=== PATIENT | female | born 1940 | race Caucasian/White ===

== ENCOUNTER 2018-11-02 15:04 | Emergency (ER) | payer OTHER ==
[~2018-11-02] VITALS: Ht 162.6 cm; Wt 51.7 kg
[~2018-11-02 15:04] MED LIST: Aspirin 81 Mg Tablet Chew PO; CARVEDILOL6.25 MG PO; DESYREL50 MG PO; PAXIL20 MG PO; PRAVACHOL40 MG PO; PRINIVIL10 MG PO
[2018-11-02] MEDS ORDERED: NORVASC5 MG PO (15:24)
[2018-11-02] MEDS ORDERED: ARICEPT10 M1 PO (15:24)
[2018-11-02] MEDS ORDERED: BENTYL 10 MG CA10 M1 PO (15:24)
[2018-11-02] MEDS ORDERED: BUSPIRONE HCL10 MG PO (15:24)
[2018-11-02] MEDS ORDERED: VITAMIN B-121000 MC3 PO (15:25)
[2018-11-02] MEDS ORDERED: XANAX 0.25 MG0.25 MG PO (15:25)
[2018-11-02] MEDS ORDERED: SEROQUEL 25 MG25 M1 PO (15:25)
[2018-11-02] MEDS ORDERED: LEXAPRO 10 MG T10 M2 PO (15:26)
[2018-11-02] MEDS ORDERED: IBUPROFEN 400400 M2 PO (15:26)
[2018-11-02 16:00] LABS: URINE BILIRUBIN NEGATIVE (Negative); URINE BLOOD 1+ (Negative); URINE CLARITY CLEAR; URINE COLOR YELLOW; URINE GLUCOSE-RANDOM NEGATIVE (Negative); URINE KETONES NEGATIVE (Negative); URINE LEUKOCYTES-REFLEX TRACE (Negative); URINE NITRITE-REFLEX NEGATIVE (Negative); URINE PROTEIN NEGATIVE (Negative); URINE UROBILINOGEN 0.2 E.U./dl (0.2-1.0)
[2018-11-02 16:05] LABS: ABSOLUTE BASOPHILS 0.1 thou/uL (0.0-0.2); ABSOLUTE EOSINOPHILS 0.1 thou/uL (0.0-0.7); ABSOLUTE LYMPHOCYTES 2.2 thou/uL (0.8-5.3); ABSOLUTE MONOCYTES 0.6 thou/uL (0.0-1.2); ABSOLUTE NEUTROPHILS 6.4 thou/uL (1.6-8.1); BASOPHILS 0.8 %; EOSINOPHILS 0.6 %; HEMATOCRIT 42.8 % (37.0-47.0); HEMOGLOBIN 14.2 gm/dL (12.0-15.0); LYMPHOCYTES 23.9 %; MCH 30.2 pg (26.0-34.0); MCHC 33.3 g/dL (28.0-37.0); MCV 90.7 fL (80.0-100.0); MONOCYTES 5.9 %; MPV 9.2 fl. (7.2-11.1); NUCLEATED RBCS 0 /100WBC; PLATELET COUNT* 226 thou/uL (150-400); POLYS 68.8 %; RBC 4.71 mil/uL (4.20-5.00); RDW-CV 13.2 % (10.5-14.5); WBC 9.3 thou/uL (4.0-11.0)
[2018-11-02 16:15] LABS: ANION GAP 10 mmol/L (7-16); BUN 12 mg/dL (7-18); CALCIUM 9.2 mg/dL (8.5-10.1); CHLORIDE 104 mmol/L (98-107); CO2 27 mmol/L (21-32); CREATININE 0.8 mg/dL (0.6-1.3); GLUCOSE 89 mg/dL (70-99); POTASSIUM 3.7 mmol/L (3.5-5.1); SODIUM 141 mmol/L (136-145)
[2018-11-02 16:26] LABS: CASTS None Seen /LPF (None Seen); CRYSTALS None Seen /LPF (None Seen); SQUAMOUS 0-3 Few /LPF (0-3)
[2018-11-02 16:27] LABS: URINE WBC-REFLEX 0-5 Rare /HPF (0-5)
[2018-11-02 16:27] LABS: ALBUMIN 3.4 g/dL (3.4-5.0); ALKALINE PHOSPHATASE 123 U/L (46-116); LIPASE 146 U/L (73-393); SGOT 15 U/L (15-37); SGPT 14 U/L (30-65); TOTAL BILIRUBIN 0.6 mg/dL (<0.1-1.0); TOTAL PROTEIN 6.8 g/dL (6.4-8.2); TROPONIN-I LEVEL <0.06 ng/mL (<0.06)
[2018-11-02 16:28] LABS: BACTERIA-REFLEX None Seen /HPF (None Seen); URINE RBC 0-2 Rare /HPF (0-2)
[2018-11-02] MEDS ORDERED: HYDROCODON-ACE1 EAC7 PO (18:03)
[2018-11-02 18:17] VITALS: BP 134/53
--- NOTE | 2018-11-04 17:51 | EKG ---
[place] [address] ELECTROCARDIOGRAM REPORT Name: JAIVER BLUNT Room: [facility]#: [id number] Admission: 11/02/18 Attend Phys: Discharge: 11/02/18 Date of : 42 Report #: [id number] THIS REPORT FOR: //name// [facility] ED Test Date: 2018-11-02 Test Time: 15:50:57 Pat Name: JAVIER BLUNT Department: Room: Gender: F Ux Visual Designer: : 1940 Requested By: Tate Lundberg Order Number: [id number] MD: Ayden Pruett Measurements Intervals [place] Rate: 86 P: 80 [place]: 137 QRS: 72 QRSD: 83 T: 102 QT: 389 QTc: 466 Interpretive Statements Sinus rhythm Left atrial enlargement Left ventricular hypertrophy Nonspecific T abnormalities, lateral leads Compared to ECG 05/07/2011 07:32:30 Atrial abnormality now present Left ventricular hypertrophy now present T-wave abnormality now present Right-axis deviation no longer present Electronically Signed On 11-04-2018 17:51:34 CDT by Ayden Pruett [email or web address] <ELECTRONICALLY SIGNED> By: West Pruett MD, [facility] 11/04/18 1751 1550 1550 West Pruett MD, [facility] /EPI
== END 2018-11-02 18:18 | disposition home or self-care (01) ==
LOC: M.ERS 15:04
PROVIDERS: Emergency Medicine
DX: R07.89 Other chest pain (principal); R10.11 Right upper quadrant pain; I10 Essential (primary) hypertension; F41.9 Anxiety disorder, unspecified; F03.90 Unspecified dementia, unspecified severity, without behavioral disturbance, psychotic disturbance, mood disturbance, and anxiety; F17.200 Nicotine dependence, unspecified, uncomplicated; Z90.711 Acquired absence of uterus with remaining cervical stump; Z90.49 Acquired absence of other specified parts of digestive tract; Z98.890 Other specified postprocedural states; Z88.5 Allergy status to narcotic agent; Z88.6 Allergy status to analgesic agent

== ENCOUNTER → 2018-11-15 | Outpatient (CLI) | payer OTHER, MEDICAID ==
[~2018-11-15] MED LIST changes: +ARICEPT10 M1 PO; +BENTYL 10 MG CA10 M1 PO; +BUSPIRONE HCL10 MG PO; +HYDROCODON-ACE1 EAC7 PO; +IBUPROFEN 400400 M2 PO; +LEXAPRO 10 MG T10 M2 PO; +NORVASC5 MG PO; +SEROQUEL 25 MG25 M1 PO; +VITAMIN B-121000 MC3 PO; +XANAX 0.25 MG0.25 MG PO
--- NOTE | ~2018-11-15 | EEG ---
[address] [address] EEG STUDY REPORT Name: JAVIER BLUNT Room: [facility]#: [id number] Admission: 11/15/18 Attend Phys: Donald Reilly MD Discharge: Date of : 42 Report #: [id number] THIS REPORT FOR: //name// CC: Richelle Reilly This patient is being evaluated for dementia and episode of dizziness. EEG is being done to exclude the possibility of seizure. EEG was done by placing the electrode by standard 10-20 system of electrode placement. Both referential and sequential montages were used for recording. Background activity in this patient's EEG is about 8 Hz and 30 microvolt. The patient became drowsy and that is associated with bilateral slowing and vertex sharp waves. Photic stimulation was unremarkable. Throughout the record, no active epileptiform activity was noticed. IMPRESSION: This patient's EEG is intermixed with moderate amount of slowing on both sides. That is a nonspecific abnormality, which can occur with dementia, encephalopathy, effect of psychotropic medications, etc. Clinical correlation is recommended. By: 1623 1851Ptyler Reilly MD /nt
== END ==
LOC: M.CRD 12:39
DX: R42 Dizziness and giddiness (principal); M51.36 Other intervertebral disc degeneration, lumbar region; M47.896 Other spondylosis, lumbar region; E66.9 Obesity, unspecified; I10 Essential (primary) hypertension; F03.90 Unspecified dementia, unspecified severity, without behavioral disturbance, psychotic disturbance, mood disturbance, and anxiety; Z68.41 Body mass index [BMI] 40.0-44.9, adult; Z79.899 Other long term (current) drug therapy

== ENCOUNTER 2019-03-29 18:02 | Inpatient (IN) | payer OTHER, MEDICAID ==
[~2019-03-29] VITALS: Ht 162.6 cm; Wt 59.0 kg
--- NOTE | ~2019-03-29 | EKG ---
[place] [address] ELECTROCARDIOGRAM REPORT Name: JAVIER BLUNT Room: [address] IN [facility]#: [id number] Admission: 03/29/19 Attend Phys: Jason Smith, Discharge: Date of : 42 Date of Service: 03/29/19 181 Report #: [id number] THIS REPORT FOR: cc: Richelle Powers MD, Malathi MD Epiphany, Epiphany MD ~ THIS REPORT FOR: //name// [facility] ED Test Date: 2019-03-29 Test Time: 18:17:30 Pat Name: JAVIER BLUNT Department: Room: [facility] Gender: F Java User Interface Developer: MERON : 1940 Requested By: Nic Duran Order Number: [id number] MD: Measurements Intervals [place] Rate: 65 P: 86 MS: 150 QRS: 67 QRSD: 86 T: 141 QT: 422 QTc: 439 Interpretive Statements Sinus rhythm Left atrial enlargement Probable anterior infarct, age indeterminate Compared to ECG 11/02/2018 15:50:57 Myocardial infarct finding now present Left ventricular hypertrophy no longer present T-wave abnormality no longer present [email or web address] By: 16 16 Epiphany EpiphMD baisa /NARCISA
--- NOTE | ~2019-03-29 | CON ---
[address] [address] CONSULTATION Name: JAVIER BLUNT Room: [address] M.R.#: [id number] Admission: 03/29/19 Attend Phys: Jason Smith MD Discharge: Date of : 42 Report #: [id number] THIS REPORT FOR: //name// cc: Richelle Powers MD, Malathi MD ~ THIS REPORT FOR: //name// CC: Jason Powers DATE OF SERVICE: 03/30/2019 HISTORY OF PRESENT ILLNESS: This is a 78-year-old female patient who was evaluated by me for the falls. She does not know much history because she had dementia. She said she did not pass out and just fell. Her daughter was there and she indicated that the falls are pretty frequent. Some of the records indicate that she may have passed out. She denies that. She apparently has seen a neurologist, but family does not know which neurologist it was. They indicated that she had some testing done, but it was somewhere outside. I do not have any access to those testings. I did review the patient's records in the computer and it looks like in 2011 she had a carotid Doppler done. She does not know what brings these falls. REVIEW OF SYSTEMS: Positive for hypertension, hysterectomy, cholecystectomy, broken pelvis, anxiety, dementia, and looks like she continues to smoke. She was having some pain on the right side, which has become better. This was a relevant 14-point review of system. MEDICATIONS: She is on multiple medications. It is not clear what those medications are for. She is on antidepressants, but looks like she is also on lamotrigine. PAST MEDICAL HISTORY: Positive for dementia. She sees some neurologist; I do not know the neurologist's name. FAMILY HISTORY: Unremarkable. SOCIAL HISTORY: As described above. PHYSICAL EXAMINATION: Indicates the patient is alert, responsive. Her speech looks intact, but she does not know what month it is. The daughter indicates that sometime she remembers what month it is, other times she does not. She knew which hospital she was in, but overall the memory was very poor. Fund of knowledge is also poor. Cranial nerve examination 2-12 does not appear to be showing any focality. She moves all 4 extremities. Her position sense is intact. Reflexes are symmetrical. Tone is symmetrical. She does not appear to have any ataxia. I could not look at the fundus. She is a moderately built individual. Her hearing and vision ARE adequate. Her blood pressure is 128/56, respiration is 16, pulse is 80, and temperature is 98.6. She has no edema. LABORATORY DATA: White count is 8.4. Her sodium is somewhat high at 147 and potassium is low at 3.1. She did have a CT scan of the head during this admission and that demonstrated atrophy, but no acute changes. IMPRESSION AND PLAN: Episode of falling, the etiology is not clear. I had a long talk with the patient and the daughter. I told them the workup we recommended this patient include an MRI and other neurological as well as cardiology workup. Both patient and the daughter indicated that they do not desire any further neurological workup. They are competent to make their decisions and that is what their decision is. We will respect their decision. I did order a TSH and vitamin B12. Her carotid Doppler is ordered by you and as mentioned above, they do not desire any further workup and we will sign off. I did ask them to tell the nurses in case they change their mind and want further workup and please let us know if the things changes. About 50 minutes of time was spent taking care of this patient and majority counseling and coordinating. By: 0904 1048MD adelaide Dunn
[~2019-03-29 18:02] MED LIST changes: -DESYREL50 MG PO; +TRAZODONE HCL100 MG PO
[2019-03-29 18:04] VITALS: BP 120/39
[2019-03-29 18:35] LABS: ABSOLUTE BASOPHILS 0.1 thou/uL (0.0-0.2); ABSOLUTE EOSINOPHILS 0.1 thou/uL (0.0-0.7); ABSOLUTE MONOCYTES 0.6 thou/uL (0.0-1.2); ABSOLUTE NEUTROPHILS 4.6 thou/uL (1.6-8.1); BASOPHILS 0.7 %; EOSINOPHILS 1.5 %; HEMOGLOBIN 13.2 gm/dL (12.0-15.0); LYMPHOCYTES 35.6 %; MCH 30.6 pg (26.0-34.0); MCHC 33.9 g/dL (28.0-37.0); MCV 90.3 fL (80.0-100.0); MONOCYTES 7.1 %; MPV 9.7 fl. (7.2-11.1); NUCLEATED RBCS 0 /100WBC; PLATELET COUNT* 223 thou/uL (150-400); POLYS 55.1 %; RBC 4.32 mil/uL (4.20-5.00); RDW-CV 13.3 % (10.5-14.5); WBC 8.4 thou/uL (4.0-11.0)
[2019-03-29] MEDS ORDERED: LAMOTRIGINE250 MG PO (18:39)
[2019-03-29] MEDS ORDERED: REMERON15 M2 PO (18:39)
[2019-03-29 18:47] LABS: APTT 23.3 Seconds (25.0-31.3); CALCIUM 8.2 mg/dL (8.5-10.1); CREATININE 1.1 mg/dL (0.6-1.3); POTASSIUM 3.1 mmol/L (3.5-5.1); PROTIME 10.1 Seconds (9.20-11.50)
[2019-03-29 18:51] LABS: ALBUMIN 3.2 g/dL (3.4-5.0); TOTAL BILIRUBIN 0.2 mg/dL (<0.1-1.0); TOTAL PROTEIN 6.5 g/dL (6.4-8.2)
[2019-03-29 22:20] VITALS: BP 120/58
[2019-03-29 22:23] VITALS: BP 109/41
[2019-03-29] MEDS ORDERED: LAMICTAL 25 MG25 MG PO (23:51)
[2019-03-29] MEDS ORDERED: TRAZODONE HCL50 MG PO (23:52)
[2019-03-30 04:00] VITALS: BP 128/61
--- NOTE | 2019-03-30 06:16 | NUR ---
PATIENT PROGRESSING TOWARDS GOALS: NO SYNCOPAL EPISODES THIS SHIFT. PATIENT DENIES LIGHTHEADNESS. C/O RIGHT SIDED RIB PAIN BUT ABLE TO SLEEP WITH RELAXATION TECHNIQUES, NO PAIN MEDICATION REQUIRED. POTASSIUM REPLACED PER PROTOCOL, REDRAW RESULTS PENDING. CALL LIGHT WITHIN REACH
[2019-03-30 08:34] VITALS: BP 128/56
--- NOTE | 2019-03-30 10:44 | NUR ---
Pt is a LTC resident at [facility], Pt discharging back to LTC today. Updated Jonelle at LTC. Dtr in room and will transport. CM to fax dc orders. Chart copied. Nurse report number is [id number]
[2019-03-30 11:34] VITALS: BP 128/56
== END 2019-03-30 12:53 | DRG 640 ==
LOC: M.ERS 18:02 → M.2W 18:36 → M.TBA-ER 18:36 → M.2W 22:25
PROVIDERS: Family Medicine; ADMIT Internal Medicine
DX: E86.0 Dehydration (principal); E43 Unspecified severe protein-calorie malnutrition; M48.56XA Collapsed vertebra, not elsewhere classified, lumbar region, initial encounter for fracture; F41.9 Anxiety disorder, unspecified; F32.9 Major depressive disorder, single episode, unspecified; F17.210 Nicotine dependence, cigarettes, uncomplicated; F03.90 Unspecified dementia, unspecified severity, without behavioral disturbance, psychotic disturbance, mood disturbance, and anxiety; Z86.73 Personal history of transient ischemic attack (TIA), and cerebral infarction without residual deficits; Z68.22 Body mass index [BMI] 22.0-22.9, adult; Z79.899 Other long term (current) drug therapy; Z88.6 Allergy status to analgesic agent; Z88.8 Allergy status to other drugs, medicaments and biological substances; Z90.711 Acquired absence of uterus with remaining cervical stump; Z71.6 Tobacco abuse counseling

== ENCOUNTER 2019-08-02 22:02 | Emergency (ER) | payer OTHER, MEDICAID ==
[~2019-08-02] VITALS: Ht 160 cm; Wt 55.8 kg
[~2019-08-02 22:02] MED LIST changes: +LAMICTAL 25 MG25 MG PO; +LAMOTRIGINE250 MG PO; +REMERON15 M2 PO; +TRAZODONE HCL50 MG PO
[2019-08-02 23:25] LABS: ABSOLUTE BASOPHILS 0.1 thou/uL (0.0-0.2); ABSOLUTE EOSINOPHILS 0.1 thou/uL (0.0-0.7); ABSOLUTE MONOCYTES 0.8 thou/uL (0.0-1.2); ABSOLUTE NEUTROPHILS 6.8 thou/uL (1.6-8.1); BASOPHILS 0.6 %; HEMOGLOBIN 13.6 gm/dL (12.0-15.0); LYMPHOCYTES 20.6 %; MCH 30.8 pg (26.0-34.0); MCV 90.5 fL (80.0-100.0); MONOCYTES 8.1 %; MPV 10.1 fl. (7.2-11.1); NUCLEATED RBCS 0 /100WBC; PLATELET COUNT* 186 thou/uL (150-400); POLYS 69.7 %; RBC 4.42 mil/uL (4.20-5.00); RDW-CV 13.3 % (10.5-14.5); WBC 9.8 thou/uL (4.0-11.0)
[2019-08-02 23:29] LABS: CALCIUM 8.5 mg/dL (8.5-10.1); CREATININE 1.2 mg/dL (0.6-1.3); POTASSIUM 3.2 mmol/L (3.5-5.1)
[2019-08-02 23:34] LABS: ALBUMIN 3.5 g/dL (3.4-5.0); TOTAL BILIRUBIN 0.3 mg/dL (<0.1-1.0); TOTAL PROTEIN 6.7 g/dL (6.4-8.2)
[2019-08-02 23:50] LABS: URINE BLOOD NEGATIVE (Negative); URINE CLARITY CLEAR; URINE COLOR YELLOW; URINE GLUCOSE-RANDOM NEGATIVE (Negative); URINE KETONES TRACE (Negative); URINE LEUKOCYTES-REFLEX TRACE (Negative); URINE NITRITE-REFLEX NEGATIVE (Negative); URINE PROTEIN 1+ (Negative); URINE SPECIFIC GRAVITY >= 1.030 (1.005-1.030); URINE UROBILINOGEN 0.2 E.U./dl (0.2-1.0)
[2019-08-02 23:54] LABS: URINE BILIRUBIN 1+ (Negative)
[2019-08-02 23:56] LABS: ICTOTEST (BILI CONFIRMATORY) Positive (Negative)
[2019-08-03 01:30] LABS: HYALINE CASTS 4-10 Moderate /LPF (None Seen); SQUAMOUS >10 Many /LPF (0-3)
[2019-08-03 01:31] LABS: BACTERIA-REFLEX 1-9 Few /HPF (None Seen); CALCIUM OXALATE >10 Many /LPF (None Seen); URINE RBC None Seen /HPF (0-2); URINE WBC-REFLEX 6-15 Few /HPF (0-5)
[2019-08-03] MEDS ORDERED: BACTRIM DS TAB1 EACH PO (03:33)
[2019-08-03 04:56] VITALS: BP 123/61
== END 2019-08-03 04:57 | disposition home or self-care (01) ==
LOC: M.ERS 22:02
PROVIDERS: Emergency Medicine
DX: N39.0 Urinary tract infection, site not specified (principal); R53.1 Weakness; I10 Essential (primary) hypertension; F41.9 Anxiety disorder, unspecified; F03.90 Unspecified dementia, unspecified severity, without behavioral disturbance, psychotic disturbance, mood disturbance, and anxiety; Z90.711 Acquired absence of uterus with remaining cervical stump; Z90.49 Acquired absence of other specified parts of digestive tract; Z88.6 Allergy status to analgesic agent; Z88.8 Allergy status to other drugs, medicaments and biological substances

== ENCOUNTER 2020-02-29 10:47 | Inpatient (IN) | payer OTHER, MEDICAID ==
[~2020-02-29] VITALS: Ht 162.6 cm; Wt 60.5 kg
[~2020-02-29 10:47] MED LIST changes: +BACTRIM DS TAB1 EACH PO; -LEXAPRO 10 MG T10 M2 PO; +LEXAPRO20 MG PO
[2020-02-29 10:56] VITALS: BP 144/54
[2020-02-29] MEDS ORDERED: TRAMADOL 50 MG50 MG PO (10:58)
[2020-02-29] MEDS ORDERED: TYLENOL325 MG PO (10:59)
[2020-02-29] MEDS ORDERED: DESYREL150 MG PO (10:59)
[2020-02-29] MEDS ORDERED: ASPERCREME1 EACH TOP (10:59)
[2020-02-29] MEDS ORDERED: LEXAPRO20 MG PO (11:00)
[2020-02-29] MEDS ORDERED: ATIVAN0.5 M1 PO (11:00)
[2020-02-29 11:11] LABS: ABSOLUTE BASOPHILS 0.1 thou/uL (0.0-0.2); ABSOLUTE LYMPHOCYTES 1.8 thou/uL (0.8-5.3); ABSOLUTE MONOCYTES 0.5 thou/uL (0.0-1.2); EOSINOPHILS 0.6 %; HEMATOCRIT 41.5 % (37.0-47.0); HEMOGLOBIN 13.8 gm/dL (12.0-15.0); MCH 29.5 pg (26.0-34.0); MCHC 33.3 g/dL (28.0-37.0); MCV 88.5 fL (80.0-100.0); MONOCYTES 6.5 %; MPV 9.2 fl. (7.2-11.1); NUCLEATED RBCS 0 /100WBC; PLATELET COUNT* 219 thou/uL (150-400); POLYS 70.9 %; RBC 4.69 mil/uL (4.20-5.00); RDW-CV 13.1 % (10.5-14.5); WBC 8.4 thou/uL (4.0-11.0)
[2020-02-29 11:22] LABS: APTT 23.6 Seconds (25.0-31.3); INR 0.9; PROTIME 10.1 Seconds (9.20-11.50)
[2020-02-29 11:27] LABS: CREATININE 0.9 mg/dL (0.6-1.3); POTASSIUM 3.3 mmol/L (3.5-5.1)
[2020-02-29 11:40] LABS: ALBUMIN 3.4 g/dL (3.4-5.0); CK-MB MASS 1.1 ng/mL (<0.5-3.6); MAGNESIUM 2.2 mg/dL (1.8-2.4); TOTAL BILIRUBIN 0.6 mg/dL (<0.1-1.0); TOTAL PROTEIN 6.8 g/dL (6.4-8.2)
[2020-02-29 12:10] LABS: URINE BILIRUBIN NEGATIVE (Negative); URINE BLOOD TRACE (Negative); URINE CLARITY CLEAR; URINE COLOR YELLOW; URINE GLUCOSE-RANDOM NEGATIVE (Negative); URINE KETONES NEGATIVE (Negative); URINE LEUKOCYTES-REFLEX NEGATIVE (Negative); URINE NITRITE-REFLEX NEGATIVE (Negative); URINE PROTEIN NEGATIVE (Negative); URINE SPECIFIC GRAVITY 1.015 (1.005-1.030); URINE UROBILINOGEN 0.2 E.U./dl (0.2-1.0)
[2020-02-29 14:38] VITALS: BP 144/68
[2020-02-29 14:54] LABS: INFLUENZA A ANTIGEN Negative (Negative); INFLUENZA B ANTIGEN Negative (Negative)
--- NOTE | 2020-02-29 16:32 | EKG ---
[place] [address] ELECTROCARDIOGRAM REPORT Name: MERLENEJAVIER Harry Room: [address]#: [id number] Admission: 02/29/20 Attend Phys: Sushant Lakhani, Discharge: Date of : 42 Date of Service: 02/29/20 1053 Report #: [id number] THIS REPORT FOR: //name// [facility] ED Test Date: 2020-02-29 Test Time: 10:53:13 Pat Name: JAVIER BLUNT Department: Room: [facility] Gender: F Full Time Babysitter: TP : 1940 Requested By: Nic Duran Order Number: [id number] MD: Rush Medina Measurements Intervals [place] Rate: 84 P: 65 SD: 142 QRS: 72 QRSD: 78 T: 80 QT: 408 QTc: 483 Interpretive Statements Sinus rhythm Probable left atrial enlargement Consider anterior infarct Minimal ST depression, lateral leads Compared to ECG 03/29/2019 18:17:30 Myocardial infarct finding still present Electronically Signed On 02-29-2020 16:32:47 CASUALTY UNDERWRITER by Rush Medina [email or web address] <ELECTRONICALLY SIGNED> By: Rush Medina MD, [facility] 02/29/20 1632 1053 1053 Rush Medina MD, [facility] /EPI
[2020-02-29 17:28] VITALS: BP 149/59
--- NOTE | 2020-02-29 18:51 | NUR ---
PT ADMITTED TO ROOM 220 VIA CART FROM ED, REPORT RECEIVED FROM CULELN CAMILO. PT AOX4, UP AD FARAZ AND NO C/O CHEST PAIN AT THIS POINT. HOME MEDS RECONCILED, ADMISSION ASSESSMENT AND HX COMPLETED CHARTED. PT ORIENTED TO ROOM AND CALL LIGHT. PT GOAL IS TO REMAIN FREE FROM CHEST PAIN. MEDS PER APR, HOURLY ROUNDING OBSERVED, CALL LIGHT W/IN REACH.
[2020-02-29 19:45] VITALS: BP 121/50
[2020-02-29 23:50] VITALS: BP 114/45
[2020-03-01 04:00] VITALS: BP 135/49
--- NOTE | 2020-03-01 05:48 | NUR ---
ASSUMED PT CARE AT 1945. PT IS A/OX4. VSS. PT IS ON TELE MONITOR AND IS SR. PT IS ON RA. PT DENIES SOA. PT REPORTED PAIN IN RIGHT WRIST WHERE IV WAS PLACED. CN REMOVED IV. PT HAS A RIGHT AC IV, WHICH IS SL. PT IS UP AD FARAZ. FALL PRECAUTIONS IN PLACE. CALL LIGHT WITHIN REACH. PT WAS JUST UP TO RESTROOM TO VOID. NO C/O VOICED. WILL CONTINUE TO MONITOR.
[2020-03-01 08:00] VITALS: BP 167/87
--- NOTE | 2020-03-01 09:10 | NUR ---
CM SPOKE TO THE PT TO COMPLETE CM ASSESSMENT. PT ALERT, BUT FORGETFUL. PT ABLE TO ANSWER MOST ASSESSMENT QUESTIONS, BUT UNSURE IF SHE USES ANY DME FOR MOBILITY. REVIEW OF PT'S CHART INFORMS THAT THE PT RESIDES AT [facility]. CM SPOKE TO A NURSE AT [facility] AND SHE INFORMS THAT THE PT IS NORMALLY 'WALKIE-TALKIE, AND DOES NOT REQUEIRE ASSISTANCE WITH ADL'S. PT DOES NOT USE ANY DME FOR MOBILITY'. COPY OF PT'S DPOA AND [id number] DNR ARE ON THE CHART. PLAN IS FOR PT TO RETURN TO HER LTC BED AT [facility] AT D/C. CM WILL REMAIN AVAILALE TO ASSIST AND FOLLOW NEEDED. [facility] [phone]
[2020-03-01 12:07] VITALS: BP 148/62
[2020-03-01] MEDS ORDERED: CRANBERRY450 M2 PO (12:47)
[2020-03-01 16:59] VITALS: BP 165/46
--- NOTE | 2020-03-01 18:34 | NUR ---
ASSUMED PT CARE AT 0730, PT AOX2-3 THROUGHOUT SHIFT, NO C/O PAIN OR SHORTNESS OF BREATH. PT DAUGHTER IN ROOM AND UPDATED ON POC, GOT PT CLEANED UP AND AMBULATED PT IN HALLS. PT GOAL IS TO CONTINUE IV ABX THERAPY AND WORK W/ NURSING STAFF. MEDS PER APR, HOURLY ROUNDING OBSERVED, FALL PRECAUTIONS IN PLACE, CALL LIGHT W/IN REACH.
[2020-03-01 20:00] VITALS: BP 134/59
[2020-03-02 00:46] VITALS: BP 137/56
[2020-03-02 04:33] LABS: HEMATOCRIT 38.6 % (37.0-47.0); HEMOGLOBIN 12.6 gm/dL (12.0-15.0); MCH 29.3 pg (26.0-34.0); MCHC 32.6 g/dL (28.0-37.0); MCV 89.9 fL (80.0-100.0); MPV 9.2 fl. (7.2-11.1); RBC 4.29 mil/uL (4.20-5.00); RDW-CV 13.6 % (10.5-14.5); WBC 17.4 thou/uL (4.0-11.0)
[2020-03-02 04:43] VITALS: BP 182/76
[2020-03-02 04:53] LABS: ALBUMIN 3.3 g/dL (3.4-5.0); CALCIUM 8.9 mg/dL (8.5-10.1); MAGNESIUM 2.1 mg/dL (1.8-2.4); POTASSIUM 3.3 mmol/L (3.5-5.1); TOTAL BILIRUBIN 0.3 mg/dL (<0.1-1.0); TOTAL PROTEIN 6.5 g/dL (6.4-8.2)
--- NOTE | 2020-03-02 06:18 | NUR ---
PT ALERT ORIENTED 1-2. FORGETFUL UP AD FARAZ. SR . MARYCRUZ MCALLISTER TODAY. WCTM
[2020-03-02 08:09] VITALS: BP 165/67
[2020-03-02 08:37] VITALS: BP 165/67
[2020-03-02] MEDS ORDERED: TERBINAFINE HC250 MG PO (09:03)
[2020-03-02] MEDS ORDERED: ADVAIR 250-501 EACH INH (09:03)
[2020-03-02] MEDS ORDERED: PREDNISONE 20 M20 MG PO (09:03)
[2020-03-02] MEDS ORDERED: ATIVAN0.5 M1 PO (09:03)
[2020-03-02] MEDS ORDERED: PROAIR HFA8.5 GM INH (09:03)
[2020-03-02] MEDS ORDERED: AZITHROMYCIN500 MG PO (09:09)
[2020-03-02] MEDS ORDERED: TRAMADOL 50 MG50 MG PO (09:09)
[2020-03-02] MEDS ORDERED: LIPITOR 20 MG T20 M1 PO (09:09)
[2020-03-02] MEDS ORDERED: CEFDINIR300 MG PO (09:09)
--- NOTE | 2020-03-02 09:45 | NUR ---
ASSUMED CARE OF PT THIS AM AROUND 0715- TREATMENT PLANT MECHANIC IN PLACE ORDERED, TRACING SR- UPON ASSESSMENT PT NOTED TO BE UP SITTING ON SIDE OF BED- PT A&O X2-3 WITH NOTED INTERMITENT CONFUSSION- CONT OF B/B- SBA WITH TRANSFERS FOR SAFETY- LCTA, RESP EVEN AND UN-LABORED- VSS, O2 SAT 94% ON RA- ABD SOFT/ROUND/NON-TENDER, BS X4 QUADS- PT REPORTS TO HAVE HAD BM THIS AM- IV NOTED TO LEFT WRIST INTACT AND SL, IV ABT GIVEN THIS AM PRESCRIBED- GOOD PO INTAKE NOTED THIS AM WITH BREAKFAST- PT A LITTLE RESISTANT TO TAKING MEDICAITONS THIS AM WITH NOTED CONFUSSION, STATING THAT SHE DOSE NOT NORMALLY TAKE MEDICATIONS AND THEY MAKE HER SICK- THIS NURSE ABLE TO EDUCATE AND GET PT TO TAKE THIS AM- PT INSISANT THAT SHE IS LEAVING THIS AM AND GOING HOME WITH SISTER, HOWEVER SON AT BED SIDE THIS AM AND COMMUNICATING WITH MOTHER THAT SHE WOULD NOT BED ABLE TO GO HOME WITH SISTER AND WOULD BE RETURNING TO [facility]- PT DENIES ANY C/O PAIN/DISCOMFORT- CALL LIGHT AND PERSONAL BELONGINGS WITH IN REACH- ALL NEEDS MET AT THIS TIME-WCTM
--- NOTE | 2020-03-02 11:26 | NUR ---
hedy thomason w/lam, in admissions and pt's rn, to inform d/c. per lam, the facility will send transportation [phone] [phone]. pt son who is at bedside has been updated on d/c time. hedy faxed orders to [phone].
== END 2020-03-02 12:45 | DRG 190 ==
LOC: M.ERS 10:47 → M.TBA-ER 12:16 → M.2W 14:46
PROVIDERS: Family Medicine; ADMIT Internal Medicine; ATTEND Internal Medicine
DX: J44.1 Chronic obstructive pulmonary disease with (acute) exacerbation (principal); J18.0 Bronchopneumonia, unspecified organism; Z20.822 Contact with and (suspected) exposure to COVID-19; I10 Essential (primary) hypertension; F41.9 Anxiety disorder, unspecified; B35.1 Tinea unguium; F03.90 Unspecified dementia, unspecified severity, without behavioral disturbance, psychotic disturbance, mood disturbance, and anxiety; F32.9 Major depressive disorder, single episode, unspecified; J20.8 Acute bronchitis due to other specified organisms; F41.1 Generalized anxiety disorder; F17.210 Nicotine dependence, cigarettes, uncomplicated; J44.0 Chronic obstructive pulmonary disease with (acute) lower respiratory infection; E87.6 Hypokalemia; Z66 Do not resuscitate; R91.1 Solitary pulmonary nodule; Z90.711 Acquired absence of uterus with remaining cervical stump; Z90.49 Acquired absence of other specified parts of digestive tract; Z88.6 Allergy status to analgesic agent; Z88.8 Allergy status to other drugs, medicaments and biological substances; Z79.899 Other long term (current) drug therapy